=== PATIENT | male | born 1985 | race Caucasian/White ===

== ENCOUNTER 2018-01-27 08:33 | Emergency (ER) | payer OTHER, SELFPAY ==
[2018-01-27 08:40] VITALS: BP 153/82; PULSE 81; RESP 16; TEMP 36.9; O2SAT 98
--- NOTE | 2018-01-27 09:00 | W.ED.GENAD ---
Discharge Plan Disposition Patient Disposition: HOME Condition: Fair Discharge Details Chief Complaint: DentalOral Clinical Impression: Dental infection Primary Care Provider: None,None ED Provider: Irlanda Andre Home Meds and New Rx's Prescriptions: New clindamycin HCl 150 mg capsule 450 mg PO TID Qty: 63 RF: 0 Continued dextroamphetamine-amphetamine [Adderall] 20 MG tablet 20 mg PO TID RF: 0 buprenorphine-naloxone [Suboxone] 1 EACH film 8 mg PO DAILY RF: 0 Discharge Instructions Instructions: Dental Abscess (ED) Additional Instructions: Encourage hydration. Tylenol and/or ibuprofen as needed for discomfort. Please take clindamycin as prescribed. Even if symptoms improve, please take the entire course. Please follow-up with local dentist, list is provided. Please call them today to schedule appointment as soon as possible. He will need definitive care this infection is likely to recur. If you develop increased swelling, fevers or chills or other new/worsening symptoms please seek care urgently once again Discharge Data Discharge Date/Time-TO BE ENTERED AT DEPARTURE: 01/27/18 09:15 Medical Decision Making Patient is a 32 year old male presenting today with c/c of right lower dental pain. STates it began 2 days ago. Has had this previously. Has not been to the dentist in several years. Patient has localized soft tissue swelling that is visualzied externally as well, I do not appreciate any palpable fluctuance. No area to suggest drainable abscess. Uvula is midline, no trismus, no sweling under tongue, no swelling along neck. Patient is afebrile, has been afebrile at home per his report. Nontoxic. Evaluated the area with US, do not see area of localized fluid collection. Will treat with antbioitcs. I impressed upon him the importance of receiving routine dental care and that without care of a dentist, infection will return. We discussed new/worsening symptoms and when to seek care urgently once again. All of his questions and concerns were addressed, he isin agreement with this plan. Gave list of local dentists. HPI General Mode of arrival: ambulatory. Date/Time Provider Initiated Documentation: 01/27/18 08:35. Limitations to Documentation: no limitations. Information obtained by: patient. History of Present Illness 32 year old M presents to the emergency department with the chief complaint of right lower dental pain, described as moderate, Quality is described as aching, and is localized to the face and mouth. Patient reports no radiation; denies neck. Patient started experiencing this day(s) (2) and it has been constant. No relieving factors improve symptom(s), No exacerbating factors reported . Patient notes no other symptoms.; denies chest pain, cough, fever/chills, headaches, loss of appetite and rash. Patient did receive the following treatments prior to arrival, none Related Data Home Medications Medication Instructions Recorded Confirmed buprenorphine-naloxone [Suboxone] 8 mg PO DAILY 12/11/15 01/27/18 dextroamphetamine-amphetamine 20 mg PO TID 12/11/15 01/27/18 [Adderall] clindamycin HCl 450 mg PO TID #63 cap 01/27/18 Previous Rx's Medication Instructions Recorded clindamycin HCl 450 mg PO TID #63 cap 01/27/18 Allergies Allergy/AdvReac Type Severity Reaction Status Date / Time Penicillins AdvReac Unknown family hx Unverified 01/27/18 08:45 of allergy General Stated Complaint: DentalOral MARISELA: 4 Review of Systems Constitutional Reports as per HPI, Denies chills, Denies fatigue, Denies fever(s), Denies headache(s) and Denies poor appetite Eyes Denies change in vision and Denies irritation ENT Reports as per HPI, Reports dental pain, Denies dysphagia, Denies headache(s), Denies lip swelling, Denies nasal discharge, Denies nasal obstruction, Denies odynophagia, Denies sinus pain, Denies sore throat, Denies throat swelling and Denies tongue swelling Cardiovascular Reports as per HPI and Denies chest pain Respiratory Reports as per HPI and Denies cough Gastrointestinal Reports as per HPI, Denies dysphagia, Denies nausea, Denies odynophagia and Denies vomiting Integumentary/Breasts Reports as per HPI, Denies erythema, Denies rash and Denies skin pain Neurologic Denies headache(s) Endocrine Denies fatigue Allergic/Immunologic Denies lip swelling, Denies throat swelling and Denies tongue swelling [facility] Social History Smoking/Tobacco Use Status: Current every day Exam Const General: cooperative, healthy appearing, comfortable, no acute distress, well developed and well groomed Nutritional Appearance: average body habitus and well nourished Orientation: alert and awake [facility] Head: normal to inspection, normocephalic and atraumatic Ears: hearing grossly normal bilaterally, external ears normal and TM's normal bilaterally General nose exam: external nose normal and nares normal Face and sinus: abnormal facial exam (patient has swelling over the right lower side of his face) and sinuses nontender Face images: 1. swelling Mouth: lip normal, tongue normal (no swelling under tongue), oropharynx normal and moist mucous membranes Teeth and gingiva: abnormal dentition (swellilng and erythema to right lower buccal surface. ), caries (no area of fluctuance, soft tissue swelling noted) and poor dentition Throat: posterior oropharynx normal, tonsils normal and uvula midline Eyes General: appearance normal, both eyes and all related structures Neck Neck: normal visual inspection, full ROM, no lymphadenopathy, supple and no anterior neck swelling Resp Effort & Inspection: normal respiratory effort, able to speak in complete sentences and no respiratory distress Auscultation: clear to auscultation bilaterally, no rales, no rhonchi and no wheezes Cardio Rate: regular rate Rhythm: regular rhythm Heart Sounds: S1 normal and S2 normal Skin General skin exam: no rashes or lesions noted Trauma: no lacerations or abrasions Neuro General: alert and awake Cognition: normal cognition Speech: speech normal Gait: normal gait Psych Appearance: grossly normal and well kempt Mental Status: mental status grossly normal Speech and Movement: speech and movement normal Course Vital Signs Temperature 36.9 C 01/27/18 08:40 Pulse 81 01/27/18 08:40 Respiratory Rate 16 01/27/18 08:40 Blood Pressure 153/82 H 01/27/18 08:40 Pulse Oximetry 98 01/27/18 08:40 Temperature 36.9 C 01/27/18 08:40 Temperature Source Skin 01/27/18 08:40 Pulse 81 01/27/18 08:40 Respiratory Rate 16 01/27/18 08:40 Respiratory Effort 01/27/18 08:43 Blood Pressure 153/82 H 01/27/18 08:40 Blood Pressure Position Sitting 01/27/18 08:40 Pulse Oximetry 98 01/27/18 08:40 Oxygen Delivery Method Room Air 01/27/18 08:40 Oxygen Flow Rate 0 01/27/18 08:40 Pain Level 2 01/27/18 08:44 Comment 01/27/18 08:40
--- NOTE | 2018-01-27 09:10 | ED.GENADUL_ITS ---
Discharge Plan Disposition Patient Disposition: HOME Condition: Fair Discharge Details Chief Complaint: DentalOral Clinical Impression: Dental infection Primary Care Provider: None,None ED Provider: Irlanda Andre Home Meds and New Rx's Prescriptions: New clindamycin HCl 150 mg capsule 450 mg PO TID Qty: 63 RF: 0 Continued dextroamphetamine-amphetamine [Adderall] 20 MG tablet 20 mg PO TID RF: 0 buprenorphine-naloxone [Suboxone] 1 EACH film 8 mg PO DAILY RF: 0 Discharge Instructions Instructions: Dental Abscess (ED) Additional Instructions: Encourage hydration. Tylenol and/or ibuprofen as needed for discomfort. Please take clindamycin as prescribed. Even if symptoms improve, please take the entire course. Please follow-up with local dentist, list is provided. Please call them today to schedule appointment as soon as possible. He will need definitive care this infection is likely to recur. If you develop increased swelling, fevers or chills or other new/worsening symptoms please seek care urgently once again Discharge Data Discharge Date/Time-TO BE ENTERED AT DEPARTURE: 01/27/18 09:15 Medical Decision Making Patient is a 32 year old male presenting today with c/c of right lower dental pain. STates it began 2 days ago. Has had this previously. Has not been to the dentist in several years. Patient has localized soft tissue swelling that is visualzied externally as well, I do not appreciate any palpable fluctuance. No area to suggest drainable abscess. Uvula is midline, no trismus, no sweling under tongue, no swelling along neck. Patient is afebrile, has been afebrile at home per his report. Nontoxic. Evaluated the area with US, do not see area of localized fluid collection. Will treat with antbioitcs. I impressed upon him the importance of receiving routine dental care and that without care of a dentist, infection will return. We discussed new/worsening symptoms and when to seek care urgently once again. All of his questions and concerns were addressed, he isin agreement with this plan. Gave list of local dentists. HPI General Mode of arrival: ambulatory . Date/Time Provider Initiated Documentation: 01/27/18 08:35 . Limitations to Documentation: no limitations . Information obtained by: patient . History of Present Illness 32 year old M presents to the emergency department with the chief complaint of right lower dental pain, described as moderate, Quality is described as aching, and is localized to the face and mouth. Patient reports no radiation; denies neck. Patient started experiencing this day(s) (2) and it has been constant. No relieving factors improve symptom(s), No exacerbating factors reported . Patient notes no other symptoms.; denies chest pain, cough, fever/chills, headaches, loss of appetite and rash. Patient did receive the following treatments prior to arrival, none Related Data Home Medications Medication Instructions Recorded Confirmed buprenorphine-naloxone [Suboxone] 8 mg PO DAILY 12/11/15 01/27/18 dextroamphetamine-amphetamine 20 mg PO TID 12/11/15 01/27/18 [Adderall] clindamycin HCl 450 mg PO TID #63 cap 01/27/18 Previous Rx's Medication Instructions Recorded clindamycin HCl 450 mg PO TID #63 cap 01/27/18 Allergies Allergy/AdvReac Type Severity Reaction Status Date / Time Penicillins AdvReac Unknown family hx Unverified 01/27/18 08:45 of allergy General Stated Complaint: DentalOral MARISELA: 4 Review of Systems Constitutional Reports as per HPI, Denies chills, Denies fatigue, Denies fever(s), Denies headache(s) and Denies poor appetite Eyes Denies change in vision and Denies irritation ENT Reports as per HPI, Reports dental pain, Denies dysphagia, Denies headache(s), Denies lip swelling, Denies nasal discharge, Denies nasal obstruction, Denies odynophagia, Denies sinus pain, Denies sore throat, Denies throat swelling and Denies tongue swelling Cardiovascular Reports as per HPI and Denies chest pain Respiratory Reports as per HPI and Denies cough Gastrointestinal Reports as per HPI, Denies dysphagia, Denies nausea, Denies odynophagia and Denies vomiting Integumentary/Breasts Reports as per HPI, Denies erythema, Denies rash and Denies skin pain Neurologic Denies headache(s) Endocrine Denies fatigue Allergic/Immunologic Denies lip swelling, Denies throat swelling and Denies tongue swelling [facility] Social History Smoking/Tobacco Use Status: Current every day Exam Const General: cooperative, healthy appearing, comfortable, no acute distress, well developed and well groomed Nutritional Appearance: average body habitus and well nourished Orientation: alert and awake [facility] Head: normal to inspection, normocephalic and atraumatic Ears: hearing grossly normal bilaterally, external ears normal and TM's normal bilaterally General nose exam: external nose normal and nares normal Face and sinus: abnormal facial exam (patient has swelling over the right lower side of his face) and sinuses nontender Face images: 1. swelling Mouth: lip normal, tongue normal (no swelling under tongue), oropharynx normal and moist mucous membranes Teeth and gingiva: abnormal dentition (swellilng and erythema to right lower buccal surface. ), caries (no area of fluctuance, soft tissue swelling noted) and poor dentition Throat: posterior oropharynx normal, tonsils normal and uvula midline Eyes General: appearance normal, both eyes and all related structures Neck Neck: normal visual inspection, full ROM, no lymphadenopathy, supple and no anterior neck swelling Resp Effort & Inspection: normal respiratory effort, able to speak in complete sentences and no respiratory distress Auscultation: clear to auscultation bilaterally, no rales, no rhonchi and no wheezes Cardio Rate: regular rate Rhythm: regular rhythm Heart Sounds: S1 normal and S2 normal Skin General skin exam: no rashes or lesions noted Trauma: no lacerations or abrasions Neuro General: alert and awake Cognition: normal cognition Speech: speech normal Gait: normal gait Psych Appearance: grossly normal and well kempt Mental Status: mental status grossly normal Speech and Movement: speech and movement normal Course Vital Signs Temperature 36.9 C 01/27/18 08:40 Pulse 81 01/27/18 08:40 Respiratory Rate 16 01/27/18 08:40 Blood Pressure 153/82 H 01/27/18 08:40 Pulse Oximetry 98 01/27/18 08:40 Temperature 36.9 C 01/27/18 08:40 Temperature Source Skin 01/27/18 08:40 Pulse 81 01/27/18 08:40 Respiratory Rate 16 01/27/18 08:40 Respiratory Effort 01/27/18 08:43 Blood Pressure 153/82 H 01/27/18 08:40 Blood Pressure Position Sitting 01/27/18 08:40 Pulse Oximetry 98 01/27/18 08:40 Oxygen Delivery Method Room Air 01/27/18 08:40 Oxygen Flow Rate 0 01/27/18 08:40 Pain Level 2 01/27/18 08:44 Comment 01/27/18 08:40
== END 2018-01-27 09:15 | disposition home or self-care (01) ==
LOC: ER 09:14
PROVIDERS: Emergency Provider Physician Assistant
DX: K04.7 Periapical abscess without sinus (principal)
CPT/HCPCS: 99283

== ENCOUNTER 2018-07-19 12:24 | Emergency (ER) | payer OTHER, SELFPAY ==
[2018-07-19 12:26] VITALS: BP 140/85; PULSE 84; RESP 18; TEMP 37; O2SAT 100
--- NOTE | 2018-07-19 12:28 | W.ED.GENAD ---
Discharge Plan Disposition Patient Disposition: HOME Condition: Stable Discharge Details Chief Complaint: DentalOral Clinical Impression: Dental abscess Primary Care Provider: Madiha Sherwood ED Provider: Konstantin Ying Home Meds and New Rx's Prescriptions: New clindamycin HCl 150 mg capsule 450 mg PO TID 7 Days Qty: 63 RF: 0 Continued dextroamphetamine-amphetamine [Adderall] 20 MG tablet 20 mg PO TID RF: 0 buprenorphine-naloxone [Suboxone] 1 EACH film 10 mg PO DAILY RF: 0 Discharge Instructions Instructions: Dental Abscess (ED) Additional Instructions: It is very important that you return for any new or worsening symptoms and to take your antibiotic for the full course/7 days. You may continue to use gcie-boy-vinhths pain medication as needed for discomfort and use salt water rinses 3 times a day for the next 4 days. You should follow-up with a dental provider for did definitive treatment of your tooth loss/infection. If unable to do this follow-up with your primary care provider for reassessment if not improving by the end of antibiotic Referrals: Madiha Sherwood [Primary Care Provider] - (As needed for reassessment or if not improving) Discharge Data Discharge Date/Time-TO BE ENTERED AT DEPARTURE: 07/19/18 14:18 Medical Decision Making Patient presenting the emergency department for chief complaint of right lower jaw swelling. Patient states previous episodes of similar about 1 to 2 months ago and was placed upon clindamycin. He states that he started noticing repeat of swelling to the right lower jaw 4 days ago that is constant continued. He does state a broken off tooth that is been broken for a long time that is associated with the area of swelling. Patient denies any fever chills, vomiting, difficulty breathing or swallowing. Physical exam shows tooth loss down to gumline of tooth 29 and significant other dental decay and tooth loss. Surrounding tooth #29 and posteriorly there is significant swelling and fluctuance Bedside ultrasound was utilized and shows a significant area of fluid collection. Did discuss with patient risk versus benefit of both dental block and needle drainage. Patient gave verbal consent for both of these procedures. Benzocaine spray was sprayed to the area of anesthetic injection and 4 ml of 70% Marcaine and 30% 1% lidocaine were injected for a inferior alveolar block. After sufficient anesthetic level was achieved 18-gauge needle was inserted into the base of tooth 29. 5 mL's of purulent drainage was removed from this area and abscess group was sent given patient's recent recurrent infections to the same area. Patient placed on clindamycin 450 mg 3 times daily for the next week and informed that he should follow-up with a dental provider for definitive care of his dental abscess/fractured tooth. Return precautions discussed. After discussion of diagnosis and plan of care patient has no further needs, questions, or concerns and states clear understanding to return to the emergency department for any worsening symptoms. HPI General Mode of arrival: ambulatory. Date/Time Provider Initiated Documentation: 07/19/18 12:26. Limitations to Documentation: no limitations. Information obtained by: patient. History of Present Illness 32 year old M presents to the emergency department with the chief complaint of Dental pain, facial swelling, described as moderate and similar to prior episodes, with intensity rated at 3. Quality is described as aching, and is localized to the mouth (right lower jaw). Patient started experiencing this day(s) (4) and it has been constant. No relieving factors improve symptom(s), Patient notes no other symptoms.. Related Data Home Medications Medication Instructions Recorded Confirmed buprenorphine-naloxone [Suboxone] 10 mg PO DAILY 12/11/15 07/19/18 dextroamphetamine-amphetamine 20 mg PO TID 12/11/15 07/19/18 [Adderall] clindamycin HCl 450 mg PO TID 7 Days #63 cap 07/19/18 Previous Rx's Medication Instructions Recorded clindamycin HCl 450 mg PO TID 7 Days #63 cap 07/19/18 Allergies Allergy/AdvReac Type Severity Reaction Status Date / Time Penicillins AdvReac Unknown family hx Unverified 07/19/18 12:30 of allergy General MARISELA: 4 Review of Systems Constitutional Denies chills and Denies fever(s) ENT Reports as per HPI, Denies change in voice, Reports dental pain, Denies dysphagia, Denies throat swelling and Denies tongue swelling Cardiovascular Denies chest pain and Denies dyspnea Respiratory Denies dyspnea, Denies stridor and Denies wheezing Gastrointestinal Denies abdominal pain, Denies dysphagia, Denies nausea and Denies vomiting Integumentary/Breasts Denies rash Allergic/Immunologic Denies throat swelling, Denies tongue swelling and Denies wheezing PFS Social History Smoking/Tobacco Use Status: Current every day Tobacco Type: cigarettes Alcohol Intake: never Drug use: Current Sobriety Substance use type: does not use Do you feel safe at home: Yes Do you feel safe in your relationship?: Yes Exam Const General: cooperative Orientation: alert, awake and oriented x3 Limitations: mental status not altered [facility] Head: atraumatic Ears: hearing grossly normal bilaterally, normal mastoids bilaterally and no periauricular adenopathy General nose exam: external nose normal Mouth: oropharynx normal, no drooling, no muffled voice, normal tongue and no trismus Teeth and gingiva: caries, poor dentition and other (#29 broken to base, surrounding swelling and erythema) Throat: posterior oropharynx normal, tonsils normal and uvula midline Eyes General: appearance normal, both eyes and all related structures Pupils: PERRL Neck Neck: normal visual inspection, full ROM, no lymphadenopathy, no meningeal signs, trachea midline, supple, no anterior neck swelling and no midline deformity Resp Effort & Inspection: normal respiratory effort and able to speak in complete sentences
--- NOTE | 2018-07-19 12:36 | ED.GENADUL_ITS ---
Discharge Plan Disposition Patient Disposition: HOME Condition: Stable Discharge Details Chief Complaint: DentalOral Clinical Impression: Dental abscess Primary Care Provider: Madiha Sherwood ED Provider: Konstantin Ying Home Meds and New Rx's Prescriptions: New clindamycin HCl 150 mg capsule 450 mg PO TID 7 Days Qty: 63 RF: 0 Continued dextroamphetamine-amphetamine [Adderall] 20 MG tablet 20 mg PO TID RF: 0 buprenorphine-naloxone [Suboxone] 1 EACH film 10 mg PO DAILY RF: 0 Discharge Instructions Instructions: Dental Abscess (ED) Additional Instructions: It is very important that you return for any new or worsening symptoms and to take your antibiotic for the full course/7 days. You may continue to use [id number] pain medication as needed for discomfort and use salt water rinses 3 times a day for the next 4 days. You should follow-up with a dental provider for did definitive treatment of your tooth loss/infection. If unable to do this follow-up with your primary care provider for reassessment if not improving by the end of antibiotic Referrals: Madiha Sherwood [Primary Care Provider] - (As needed for reassessment or if not improving) Discharge Data Discharge Date/Time-TO BE ENTERED AT DEPARTURE: 07/19/18 14:18 Medical Decision Making Patient presenting the emergency department for chief complaint of right lower jaw swelling. Patient states previous episodes of similar about 1 to 2 months ago and was placed upon clindamycin. He states that he started noticing repeat of swelling to the right lower jaw 4 days ago that is constant continued. He does state a broken off tooth that is been broken for a long time that is associated with the area of swelling. Patient denies any fever chills, vomiting, difficulty breathing or swallowing. Physical exam shows tooth loss down to gumline of tooth 29 and significant other dental decay and tooth loss. Surrounding tooth #29 and posteriorly there is significant swelling and fluctuance Bedside ultrasound was utilized and shows a significant area of fluid collection. Did discuss with patient risk versus benefit of both dental block and needle drainage. Patient gave verbal consent for both of these procedures. Benzocaine spray was sprayed to the area of anesthetic injection and 4 ml of 70% Marcaine and 30% 1% lidocaine were injected for a inferior alveolar block. After sufficient anesthetic level was achieved 18-gauge needle was inserted into the base of tooth 29. 5 mL's of purulent drainage was removed from this area and abscess group was sent given patient's recent recurrent infections to the [facility] [place]. Patient placed on clindamycin 450 mg 3 times daily for the next week and informed that he should follow-up with a dental provider for definitive care of his dental abscess/fractured tooth. Return precautions discussed. After discussion of diagnosis and plan of care patient has no further needs, questions, or concerns and states clear understanding to return to the emergency department for any worsening symptoms. HPI General Mode of arrival: ambulatory . Date/Time Provider Initiated Documentation: 07/19/18 12:26 . Limitations to Documentation: no limitations . Information obtained by: patient . History of Present Illness 32 year old M presents to the emergency department with the chief complaint of Dental pain, facial swelling, described as moderate and similar to prior episodes, with intensity rated at 3. Quality is described as aching, and is localized to the mouth (right lower jaw). Patient started experiencing this day(s) (4) and it has been constant. No relieving factors improve symptom(s), Patient notes no other symptoms.. Related Data Home Medications Medication Instructions Recorded Confirmed buprenorphine-naloxone [Suboxone] 10 mg PO DAILY 12/11/15 07/19/18 dextroamphetamine-amphetamine 20 mg PO TID 12/11/15 07/19/18 [Adderall] clindamycin HCl 450 mg PO TID 7 Days #63 cap 07/19/18 Previous Rx's Medication Instructions Recorded clindamycin HCl 450 mg PO TID 7 Days #63 cap 07/19/18 Allergies Allergy/AdvReac Type Severity Reaction Status Date / Time Penicillins AdvReac Unknown family hx Unverified 07/19/18 12:30 of allergy General MARISELA: 4 Review of Systems Constitutional Denies chills and Denies fever(s) ENT Reports as per HPI, Denies change in voice, Reports dental pain, Denies dysphagia, Denies throat swelling and Denies tongue swelling Cardiovascular Denies chest pain and Denies dyspnea Respiratory Denies dyspnea, Denies stridor and Denies wheezing Gastrointestinal Denies abdominal pain, Denies dysphagia, Denies nausea and Denies vomiting Integumentary/Breasts Denies rash Allergic/Immunologic Denies throat swelling, Denies tongue swelling and Denies wheezing PFSH Social History Smoking/Tobacco Use Status: Current every day Tobacco Type: cigarettes Alcohol Intake: never Drug use: Current Sobriety Substance use type: does not use Do you feel safe at home: Yes Do you feel safe in your relationship?: Yes Exam Const General: cooperative Orientation: alert, awake and oriented x3 Limitations: mental status not altered HENMT Head: atraumatic Ears: hearing grossly normal bilaterally, normal mastoids bilaterally and no periauricular adenopathy General nose exam: external nose normal Mouth: oropharynx normal, no drooling, no muffled voice, normal tongue and no trismus Teeth and gingiva: caries, poor dentition and other (#29 broken to base, surrounding swelling and erythema) Throat: posterior oropharynx normal, tonsils normal and uvula midline Eyes General: appearance normal, both eyes and all related structures Pupils: PERRL Neck Neck: normal visual inspection, full ROM, no lymphadenopathy, no meningeal signs, trachea midline, supple, no anterior neck swelling and no midline deformity Resp Effort & Inspection: normal respiratory effort and able to speak in complete sen tences
[2018-07-19] MEDS: Bupivacaine 0.5% Pres-Free 30 ML VIAL IJ (13:52)
[2018-07-19] MEDS: Clindamycin 150 MG CAP 450 MG PO (13:53)
[2018-07-19 14:01] VITALS: BP 140/85; PULSE 84; RESP 18; TEMP 37; O2SAT 98
--- NOTE | 2018-07-19 14:02 | NUR.NOTE ---
pt states clear plan for follow up with dental stating that he alredy has contact with a dentist in [place]
== END 2018-07-19 14:18 | disposition home or self-care (01) ==
PROVIDERS: Emergency Provider Nurse Practitioner Family; PCP Nurse Practitioner Family
DX: K04.7 Periapical abscess without sinus (principal)
CPT/HCPCS: 10160; 99284; 87070; 87205